=== PATIENT | female | born 1975 | race Caucasian/White ===

== ENCOUNTER 2022-03-11 06:17 | Outpatient (CLI) | payer BC, OTHER ==
[~2022-03-11] VITALS: Ht 165.1 cm; Wt 119.3 kg
[~2022-03-11 06:17] MED LIST: ACHD5005 PO; ASPI-586 PO; DOCU-143 PO; LORA10TA7 PO; RANI-609 PO
[2022-03-12] MEDS ORDERED: OMEP-401 PO (14:30)
[2022-03-12] MEDS ORDERED: FEXO1TAB43 PO (14:30)
== END 2022-03-12 14:31 | disposition home or self-care (01) ==
LOC: PREOP 06:17
PROVIDERS: ATTEND Surgery
DX: Z01.818 Encounter for other preprocedural examination (principal)

== ENCOUNTER 2022-03-23 07:00 | Day surgery (SDC) | payer BC, OTHER ==
[~2022-03-23] VITALS: Ht 165.1 cm; Wt 119.3 kg
[~2022-03-23 07:00] MED LIST changes: +FEXO1TAB43 PO; +OMEP-401 PO
[2022-03-23] MEDS ORDERED: LACTATED RINGERS 1,000 ML IV ONE (07:22)
[2022-03-23 07:30] VITALS: BP 147/83
[2022-03-23] MEDS ORDERED: MIDAZOLAM 2 MG/2 ML (VERSED) VIAL ONE (07:43)
[2022-03-23] MEDS ORDERED: PROPOFOL INJECTION 50 ML IV ONE (07:43)
[2022-03-23] MEDS ORDERED: LACTATED RINGERS 1,000 ML IV STA (08:09)
[2022-03-23] MEDS ORDERED: HURRICAINE EXT TUBE (BENZOCAINE) XX PRN (08:15)
--- NOTE | 2022-03-23 08:31 | Progress Note-Pre Operative ---
Pre-Operative Progress Note Date of Available H&P: Mar 03, 2022 Date H&P Reviewed: Mar 23, 2022 Time H&P Reviewed: 08:26 History & Physical: H&P Reviewed, Patient Examed, No changes noted Pre-Operative Diagnosis: Rectal bleed, Gastritis SYLVAIN WEINBERG DO Mar 23, 2022 08:30
[2022-03-23 09:04] VITALS: BP 138/77
[2022-03-23 09:05] VITALS: BP 119/63
--- NOTE | 2022-03-23 09:06 | Progress Note-Post Operative ---
Post-Operative Progess Note Surgeon (s)/Content Administrator (s) Surgeon SYLVAIN WEINBERG DO Content Administrator: Sarahistacy Pizarro, MSIII Pre-Operative Diagnosis Rectal bleed, Gastritis Post-Operative Diagnosis Gastritis Hiatal hernia Int hemorrhoids Procedure & Operative Findings Date of Procedure 03/23/22 Procedure Performed/Findings EGD with biopsy Colonoscopy PROCEDURE NOTE: After informed consent was obtained, the patient was brought to the endoscopy suite, placed in bed in left lateral decubitus position. She was administered IV sedation by the EMERGENCY CARE TECH who then monitored vitals the entire time, heart rate, blood pressure and pulse ox and the scope was inserted down the mouth through the esophagus into the stomach. On the way down, noted some mild esophagitis, took a picture, pushed into the stomach, pushed past the antrum into the duodenum. Duodenum looked good. Pulled back and did a biopsy of antrum, then retroflexed the scope, saw a moderate hiatal hernia, took a picture of this and then pulled the scope into the GE junction, took another picture of the hiatal hernia and then did a biopsy of the GE junction. Pushed the scope back into the stomach, suctioned all the air out of the stomach. At this point pulled the scope up the esophagus and out the mouth. Switched camera, switched gloves, went down below and started the colonoscopy. Pushed all the way into about 150 cm to get all the way to cecum, took a picture of the appendiceal orifice and noted the ileocecal valve. Then slowly withdrew the scope, insufflating to look circumferentially at the cristina starting in the cecum, up the ascending colon to the hepatic flexure, then down the transverse colon to the splenic flexure, into the descending colon, down into the sigmoid and finally into the rectum, retroflexed in the rectal vault, saw some minimal internal hemorrhoids and took a picture of them. The patient tolerated the procedure and she recovered in the endoscopy suite. Recommended for repeat colonoscopy in 10 years Anesthesia Type IV sedation by the EMERGENCY CARE TECH Estimated Blood Loss Estimated blood loss (mL): scant Specimens/Packing Specimens Removed antral bx body of stomach bx GE jxn bx SYLVAIN WEINBERG DO Mar 23, 2022 09:06
--- NOTE | 2022-03-23 09:07 | Endoscopy Discharge Instruct ---
Endo Procedure/Findings Findings 1.: Gastritis 2.: Hiatal Hernia 3.: Internal Hemorrhoids Discharge Instructions - Activity: You might feel a little sleepy until tomorrow. This is due to the medicine you received to relax you. Until tomorrow, you should: NOT drive a car, operate machinery or power tools. NOT drink any alcoholic beverages. NOT make any important decisions or sign importortant papers. Do not return to work until tomorrow, unless otherwise instructed. Resume previous activities tomorrow. Diet: Start by taking liquids. If you tolerate liquids, advance to solid food. 1.: EGD in 3 years 2.: Colonscopy in 10 years Notify Physician - If you experience excessive bleeding, unusual abdominal pain, fever, or chest pain, contact your doctor immediately. SYLVAIN WEINBERG DO Mar 23, 2022 09:07
[2022-03-23 09:25] VITALS: BP 119/63
--- NOTE | 2022-03-23 11:17 | Anesthesia-General Post-Op ---
MAC Patient Condition Mental Status/LOC: Same as Preop Cardiovascular: Satisfactory Nausea/Vomiting: Absent Respiratory: Satisfactory Pain: Controlled Complications: Absent Post Op Complications Complications None Follow Up Care/Instructions Patient Instructions None needed. Anesthesiology Discharge Order Discharge Order Patient is doing well, no complaints, stable vital signs, no apparent adverse anesthesia problems. No complications reported per nursing. MARIA PHELAN CRNA Mar 23, 2022 11:17
== END 2022-03-23 10:08 | disposition home or self-care (01) ==
LOC: ENDO 07:00
PROVIDERS: ATTEND Surgery
DX: K22.70 Barrett's esophagus without dysplasia (principal); K31.89 Other diseases of stomach and duodenum; K44.9 Diaphragmatic hernia without obstruction or gangrene; K64.8 Other hemorrhoids; E66.01 Morbid (severe) obesity due to excess calories; Z68.41 Body mass index [BMI] 40.0-44.9, adult; K29.50 Unspecified chronic gastritis without bleeding
CPT/HCPCS: 84703